=== PATIENT | female | born 1965 | race Caucasian/White ===

== ENCOUNTER 2018-12-03 12:13 | Outpatient (CLI) | payer OTHER ==
[2018-12-03 13:54] LABS: BASOPHILS % (AUTO) 0.5 % (0-1); EOSINOPHILS # (AUTO) 0.2 X10'3 (0-0.9); EOSINOPHILS % (AUTO) 2.9 % (0-6); HEMATOCRIT 43.6 % (35.0-45.0); HEMOGLOBIN 14.4 g/dl (12.0-16.0); LYMPHOCYTES # (AUTO) 0.6 X10'3 (1.1-4.8); LYMPHOCYTES % (AUTO) 11.5 % (21-51); MEAN CORPUSCULAR HGB CONC 32.9 % (33.0-36.5); MEAN PLATELET VOLUME 8.1 FL (7.4-10.4); MONOCYTES # (AUTO) 0.6 X10'3 (0-0.9); MONOCYTES % (AUTO) 10.7 % (2-12); NEUTROPHILS # (AUTO) 3.8 X10'3 (1.8-7.7); NEUTROPHILS % (AUTO) 74.4 % (42-75); PLATELET COUNT 348 X10'3 (140-440); RED BLOOD COUNT 4.64 X10'6 (4.20-5.60); WHITE BLOOD COUNT 5.2 X10'3 (4.5-11.0)
[2018-12-03 14:05] LABS: ALANINE AMINOTRANSFERASE 26 U/L (12-78); ALBUMIN 3.9 G/DL (3.4-5.0); ALKALINE PHOSPHATASE 56 IU/L (46-116); ANION GAP 8 (8-16); ASPARTATE AMINO TRANSFERASE 18 U/L (10-37); BILIRUBIN,TOTAL 0.2 MG/DL (0.1-1.0); BLOOD UREA NITROGEN 21 MG/DL (7-18); BUN/CREATININE RATIO 26.9 (6.6-38.0); CALCIUM 8.8 MG/DL (8.5-10.1); CHLORIDE 104 MMOL/L (99-107); CREATININE 0.78 MG/DL (0.40-0.90); GLUCOSE 94 MG/DL (70-104); POTASSIUM 4.2 MMOL/L (3.5-5.1); SODIUM 140 MMOL/L (135-145); TOTAL CARBON DIOXIDE 27.9 MMOL/L (24-32); TOTAL PROTEIN 7.7 G/DL (6.4-8.2); eGFR 78 ML/MIN
[2018-12-04 08:40] LABS: UA COLLECTION TYPE CLN CATCH MIDSTREAM
[2018-12-04 08:41] LABS: CLARITY,URINE CLEAR (Clear); COLOR,URINE YELLOW (Yellow); GLUCOSE, URINE NEGATIVE (Neg); KETONES,URINE NEGATIVE (Neg); LEUKOCYTE ESTERASE ,URINE NEGATIVE (Neg); NITRITES, URINE NEGATIVE (Neg); OCCULT BLOOD,URINE NEGATIVE (Neg); PROTEIN,URINE NEGATIVE (Neg); UROBILINOGEN,URINE 0.2 E.U/dL (0.2-1.0)
== END 2018-12-03 23:59 | disposition home or self-care (01) ==
LOC: LAB 12:13
PROVIDERS: ATTEND Internal Medicine Rheumatology
DX: R76.0 Raised antibody titer (principal); Z87.891 Personal history of nicotine dependence
CPT/HCPCS: 36415; 80053; 81003; 82306; 85025; 85651; 87088

== ENCOUNTER 2019-03-09 14:14 | Outpatient (CLI) | payer OTHER | END 2019-03-09 23:59 | disposition home or self-care (01) | LOC: RT 14:14 | PROVIDERS: ATTEND Internal Medicine Critical Care Medicine | DX: J98.8 Other specified respiratory disorders (principal); J98.4 Other disorders of lung; D86.9 Sarcoidosis, unspecified; Z87.891 Personal history of nicotine dependence; Z88.5 Allergy status to narcotic agent | CPT/HCPCS: 94010; 94727; 94729 ==

== ENCOUNTER 2019-05-10 12:00 | Outpatient (CLI) | payer OTHER | END 2019-05-10 23:59 | disposition home or self-care (01) | LOC: 64 CT 12:00 | PROVIDERS: ATTEND Internal Medicine Critical Care Medicine | DX: J90 Pleural effusion, not elsewhere classified (principal); D86.0 Sarcoidosis of lung; J84.10 Pulmonary fibrosis, unspecified; M41.84 Other forms of scoliosis, thoracic region; R91.8 Other nonspecific abnormal finding of lung field; K76.89 Other specified diseases of liver; G44.52 New daily persistent headache (NDPH); Z87.891 Personal history of nicotine dependence; Z98.82 Breast implant status | CPT/HCPCS: 71250 ==

== ENCOUNTER 2019-06-29 14:11 | Outpatient (CLI) | payer OTHER | END 2019-06-29 23:59 | disposition home or self-care (01) | LOC: RT 14:11 | PROVIDERS: ATTEND Internal Medicine Critical Care Medicine | DX: J45.998 Other asthma (principal); D86.0 Sarcoidosis of lung; J98.4 Other disorders of lung; Z88.5 Allergy status to narcotic agent; Z87.891 Personal history of nicotine dependence | CPT/HCPCS: 94010; 94727; 94729 ==

== ENCOUNTER 2019-09-28 14:12 | Outpatient (CLI) | payer OTHER | END 2019-09-28 23:59 | disposition home or self-care (01) | LOC: RT 14:12 | PROVIDERS: ATTEND Internal Medicine Critical Care Medicine | DX: J45.998 Other asthma (principal); Z79.899 Other long term (current) drug therapy; Z87.891 Personal history of nicotine dependence; Z87.09 Personal history of other diseases of the respiratory system | CPT/HCPCS: 94010; 94727; 94729 ==

== ENCOUNTER 2019-11-30 14:16 | Outpatient (CLI) | payer OTHER | END 2019-11-30 23:59 | disposition home or self-care (01) | LOC: RT 14:16 | PROVIDERS: ATTEND Internal Medicine Critical Care Medicine | DX: D86.0 Sarcoidosis of lung (principal) | CPT/HCPCS: 94729 ==

== ENCOUNTER 2020-01-25 14:11 | Outpatient (CLI) | payer OTHER ==
[2020-01-25 15:00] LABS: CLARITY,URINE CLEAR (Clear); COLOR,URINE STRAW (Yellow); GLUCOSE, URINE NEGATIVE (Neg); KETONES,URINE NEGATIVE (Neg); LEUKOCYTE ESTERASE ,URINE NEGATIVE (Neg); NITRITES, URINE NEGATIVE (Neg); OCCULT BLOOD,URINE NEGATIVE (Neg); PROTEIN,URINE NEGATIVE (Neg); UROBILINOGEN,URINE 0.2 E.U/dL (0.2-1.0)
[2020-01-25 15:00] LABS: BASOPHILS % (AUTO) 0.4 % (0-1); EOSINOPHILS # (AUTO) 0.2 X10'3 (0-0.9); EOSINOPHILS % (AUTO) 3.7 % (0-6); HEMATOCRIT 42.2 % (35.0-45.0); HEMOGLOBIN 14.4 g/dl (12.0-16.0); LYMPHOCYTES # (AUTO) 0.7 X10'3 (1.1-4.8); LYMPHOCYTES % (AUTO) 12.6 % (21-51); MEAN CORPUSCULAR HEMOGLOBIN 31.3 PG (27.0-31.0); MEAN CORPUSCULAR HGB CONC 34.2 g/dL (33.0-36.5); MEAN CORPUSCULAR VOLUME 91.6 FL (78-98); MEAN PLATELET VOLUME 7.9 FL (7.4-10.4); MONOCYTES # (AUTO) 0.6 X10'3 (0-0.9); MONOCYTES % (AUTO) 11.1 % (2-12); NEUTROPHILS % (AUTO) 72.2 % (42-75); PLATELET COUNT 284 X10'3 (140-440); RED BLOOD COUNT 4.61 X10'6 (4.20-5.60); WHITE BLOOD COUNT 5.5 X10'3 (4.5-11.0)
[2020-01-25 15:02] LABS: UA COLLECTION TYPE CLN CATCH MIDSTREAM
[2020-01-25 15:29] LABS: ALANINE AMINOTRANSFERASE 28 U/L (12-78); ALBUMIN 4.5 G/DL (3.4-5.0); ALBUMIN/GLOBULIN RATIO 1.2 (1.1-1.5); ALKALINE PHOSPHATASE 55 IU/L (46-116); ANION GAP 7 (8-16); ASPARTATE AMINO TRANSFERASE 26 U/L (10-37); BILIRUBIN,TOTAL 0.3 MG/DL (0.1-1.0); BLOOD UREA NITROGEN 14 MG/DL (7-18); CALCIUM 9.2 MG/DL (8.5-10.1); CHLORIDE 102 MMOL/L (99-107); CREATINE KINASE 61 U/L (26-192); GLUCOSE 84 MG/DL (70-104); POTASSIUM 3.5 MMOL/L (3.5-5.1); SODIUM 139 MMOL/L (135-145); TOTAL CARBON DIOXIDE 30.2 MMOL/L (24-32); TOTAL PROTEIN 8.3 G/DL (6.4-8.2); eGFR 88 ML/MIN
[2020-01-27 10:17] LABS: HBSAG SCREEN Negative (Negative); HEP A AB, IGM Negative (Negative); HEP B CORE AB, IGM Negative (Negative); HEPATITIS C ANTIBODY <0.1 s/co ratio (0.0-0.9); IMMUNOGLOBULIN A, QN, SERUM 249 mg/dL (87-352); IMMUNOGLOBULIN G, QN, SERUM 1279 mg/dL (700-1600); IMMUNOGLOBULIN M, QN, SERUM 132 mg/dL (26-217)
[2020-01-27 11:10] LABS: A/G RATIO 1.2 (0.7-1.7); ALBUMIN 4.1 g/dL (2.9-4.4); BETA GLOBULIN 1.1 g/dL (0.7-1.3); GAMMA GLOBULIN 1.4 g/dL (0.4-1.8); GLOBULIN, TOTAL 3.5 g/dL (2.2-3.9); M-SPIKE Not Observed g/dL (Not Observed); PROTEIN, TOTAL, SERUM 7.6 g/dL (6.0-8.5)
== END 2020-01-25 23:59 | disposition home or self-care (01) ==
LOC: LAB 14:11
PROVIDERS: ATTEND Internal Medicine Rheumatology
DX: R76.0 Raised antibody titer (principal); M79.642 Pain in left hand; M79.641 Pain in right hand
CPT/HCPCS: 36415; 73120; 80053; 80074; 81003; 82550; 82595; 82784; 84155; 84165; 85025; 85651; 86334